=== PATIENT | female | born 1995 | race Caucasian/White ===

== ENCOUNTER → 2020-08-30 | Outpatient (CLI) | payer OTHER ==
--- NOTE | 2020-09-05 15:07 | REP ---
OB ULTRASOUND: 08/30/20 HISTORY: Growth scan. Gastric bypass. Real time sonographic evaluation of gravid uterus performed. There is a single living intrauterine gestation. The estimated gestational age is reportedly 31 weeks 1 day, EDC 10/31/20. Todays measurements indicates appropriate growth. BIOMETRY AND GROWTH: BPD: 80mm, 32 weeks 1 day; 65th percentile HC: 294mm, 32 weeks 3 days; 70th percentile AC: 274mm, 31 weeks 3 days; 56th percentile FL: 61mm, 31 weeks 5 days; 59th percentile HC/AC Ratio: 1.07 within normal range 0.96-1.15 Estimated weight: 1819g, 60th percentile position is cephalic. Placenta is anterior and grade with no previa or abruption. Three vessel umbilical cord is noted. HR is 133bpm. Amniotic fluid is within normal limits, ELVIA 12.5, normal range 8.8-23.8. S/D Ratio umbilical artery 3.41, normal range 1.89-3.97. RI 0.71, normal range 0.51-0.76. Visualized anatomy today includes lateral ventricles, posterior fossa, upper lip, stomach, kidneys, bladder, and spine. Cervix is closed and measures 3.7cm in length. MTDD
== END ==
LOC: M RAD 08:39 → EDBD 09-02 11:30
DX: Z34.83 Encounter for supervision of other normal pregnancy, third trimester (principal); Z3A.31 31 weeks gestation of pregnancy

== ENCOUNTER 2020-10-24 07:28 | Inpatient (IN) | payer OTHER ==
[~2020-10-24] VITALS: Ht 165.1 cm; Wt 107.7 kg
[~2020-10-24 07:28] MED LIST: VALT1TAB PO; VITA1MIS PO
[2020-10-24] MEDS ORDERED: LACTATED RINGER'S 1000 ML IV STA (07:50)
[2020-10-24] MEDS ORDERED: BICITRA 30ML SOLN UDC PO ONE (08:00)
[2020-10-24] MEDS ORDERED: ceFAZolin SOD 2 GM in IV 1 EA IV ONE (08:00)
[2020-10-24 08:40] LABS: HEMATOCRIT 37.9 % (36.0-47.0); HEMOGLOBIN 12.1 g/dl (12.0-15.5); MEAN CORPUSCULAR HEMOGLOBIN 27.9 pg (27.0-33.0); MEAN CORPUSCULAR HGB CONC 31.9 g/dl (32.0-36.5); MEAN CORPUSCULAR VOLUME 87.5 fl (80.0-96.0); PLATELET COUNT, AUTOMATED 215 10^3/uL (150-450); RED BLOOD COUNT 4.33 10^6/uL (4.00-5.40); WHITE BLOOD COUNT 8.1 10^3/uL (4.0-10.0)
[2020-10-24] MEDS: LR 1,000 ML IV SCH ×3 (09:44→23:50)
[2020-10-24] MEDS ORDERED: OXYTOCIN INJ 10 UNITS/ML VIAL (J2590) As Ordered ONE (09:57)
[2020-10-24] MEDS ORDERED: MORPHINE PRES-FREE INJ 10 MG/10 ML VIAL (J2274) As Ordered ONE (09:57)
[2020-10-24] MEDS ORDERED: ONDANSETRON 4MG/2ML VIAL As Ordered ONE (09:57)
[2020-10-24] MEDS ORDERED: ONDANSETRON 4MG/2ML VIAL IV PRN ×2 (10:06→11:45)
[2020-10-24] MEDS ORDERED: NALBUPHINE HCL 10 MG/ML AMP (J2300) IV PRN (10:06)
[2020-10-24] MEDS ORDERED: METOCLOPRAMIDE INJ 10MG/2ML VIAL (J2765 PER 1) IV PRN ×2 (10:06→11:45)
[2020-10-24] MEDS ORDERED: NALOXONE INJ 0.4MG/1ML VIAL (J2310 PER 1MG) IV PRN ×2 (10:06)
[2020-10-24] MEDS ORDERED: ePHEDrine SULFATE 25 MG/5 ML(5MG/ML) SYRINGE As Ordered ONE (10:16)
[2020-10-24] MEDS ORDERED: KETOROLAC 60MG 2ML VIAL As Ordered ONE (10:40)
[2020-10-24] MEDS ORDERED: diphenhydrAMINE 50MG/ML VIAL (J1200) As Ordered ONE (11:20)
[2020-10-24] MEDS ORDERED: OXYTOCIN DRIP 30 UNITS in IV 1 EA IV SCH (11:27)
[2020-10-24] MEDS ORDERED: MEASLES,MUMPS,RUBELLA VACCINE INJ (MMR-II) (90707) SC SCH (11:30)
[2020-10-24] MEDS ORDERED: ONDANSETRON 4 MG TAB PO PRN (11:30)
[2020-10-24] MEDS ORDERED: DOCUSATE SODIUM 100MG CAPSULE PO PRN (11:30)
[2020-10-24] MEDS ORDERED: RHOGAM 300 MCG (1500 IU) INJ (J2790) IM SCH (11:30)
[2020-10-24] MEDS ORDERED: fentaNYL 100 MCG/2 ML INJECTION (J3010) IV PRN (11:45)
[2020-10-24] MEDS ORDERED: PERCOCET 5MG/325MG TAB PO PRN (11:45)
[2020-10-24] MEDS ORDERED: LR 1,000 ML IV SCH (11:45)
[2020-10-24] MEDS ORDERED: OXYTOCIN 30 UNITS IN 0.9% NaCl 500ML IV BAG (J2590) As Ordered ONE (12:03)
--- NOTE | 2020-10-24 12:36 | RO ---
OPERATIVE NOTE DATE OF OPERATION: 10/24/2020 PREOPERATIVE DIAGNOSIS: History of section, no desire for child labor after section, and obesity. POSTOPERATIVE DIAGNOSIS: History of section, no desire for child labor after section, and obesity. PROCEDURE: Repeat low transverse section. SURGEON: Jovan Enrique DO DISABILITY BENEFITS SPECIALIST: Pat eParl CNM whose assistance with exposure and retraction was essential to the completion of the case. IV FLUIDS: 1200 mL OR. URINE OUTPUT: 50 mL. ESTIMATED BLOOD LOSS: 600 mL. COMPLICATIONS: None. ANTIBIOTICS: 2 grams Ancef before skin incision. OPERATIVE FINDINGS: A viable female found and delivered in cephalic presentation. Apgars 8 and 9. weight 3250 grams. Normal-appearing placenta; normal-appearing ovaries and fallopian tubes. DETAILED PROCEDURE DESCRIPTION: The risks, benefits, indications and alternatives of the procedure were reviewed with the patient and informed consent was obtained. The patient was taken to the operating room where spinal anesthesia was obtained and found to be adequate. She was then prepped and draped in the normal sterile fashion in the dorsal supine position. A Pfannenstiel skin incision was then made with a scalpel and carried through to the underlying layer of fascia with the Bovie. The fascia was incised in the midline and the incision was extended laterally with Martin scissors. There was extensive subcutaneous fat and fascial scarring. The superior aspect of the fascial incision was grasped with Tierra clamps, elevated, and the underlying rectus muscles were dissected off bluntly and with Martin scissors. Attention was then turned to the inferior aspect of the incision which, in a similar fashion, was grasped, tented up with Tierra clamps and the rectus muscles dissected off with blunt dissection and with Martin scissors. The rectus muscles were then in the midline. Next, the peritoneum was identified, tented up and entered bluntly. The peritoneal incision was extended horizontally and inferiorly with good visualization of the bladder. The extensive fascial scarring dissection added an extra 20 minutes to the case. A mobius self-containing retractor was then introduced into the abdomen. The vesicouterine peritoneum was then identified and a bladder flap was created using Metzenbaum scissors. Next, the lower uterine segment was incised in a transverse fashion with the scalpel. The amniotic sac was artificially ruptured producing clear fluid. The uterine incision was then extended manually in a superolateral fashion. The infant was found to be in cephalic presentation. The baby was then delivered without difficulty through the hysterotomy. The umbilical cord was then doubly clamped and cut. The infant was then handed off to the awaiting pediatricians. The placenta was then removed manually. The uterus was then cleared of all clots and debris. The uterine incision was then repaired with 0 Monocryl suture in a running, locked fashion. A second layer of 0 Monocryl was then used to imbricate the hysterotomy in a vertical fashion. Additional [id number] sutures of 3-0 Vicryl were used in the middle of the hysterotomy to achieve excellent hemostasis. Irrigation was then performed. Inspection of the hysterotomy again revealed excellent hemostasis. Irrigation was then performed to good effect. The Mobius self-containing retractor was then removed from the abdomen. The peritoneum was then closed with 3-0 Vicryl suture in a running fashion. The fascia was then closed with 0 PDS in a running fashion. The subcutaneous fat was then closed with 3-0 Vicryl suture. The skin was then closed with 4-0 Monocryl in a subcuticular fashion. The incision was then dressed and a pressure dressing was applied. At the completion of the case, a bimanual exam was performed which revealed good uterine tone and minimal vaginal bleeding. The patient tolerated the procedure well. Sponge, instrument, and needle counts were correct were correct times 3. The patient was taken to the recovery room in stable condition. SANDI
[2020-10-24 13:10] VITALS: BP 140/72
[2020-10-24 13:59] VITALS: BP 147/72
[2020-10-24 15:00] VITALS: BP 144/75
[2020-10-24] MEDS: KETOROLAC 30 MG/ML 1ML VIAL IV SCH ×2 (16:50→22:53)
[2020-10-24 18:00] VITALS: BP 143/75
[2020-10-24] MEDS: diphenhydrAMINE 50MG/ML VIAL (J1200) IV PRN (19:50)
[2020-10-24 22:00] VITALS: BP 129/74
[2020-10-25 02:00] VITALS: BP 125/56
[2020-10-25] MEDS: diphenhydrAMINE 50MG/ML VIAL (J1200) IV PRN (02:25)
[2020-10-25] MEDS: KETOROLAC 30 MG/ML 1ML VIAL IV SCH (05:18)
[2020-10-25 05:35] VITALS: BP 117/56
[2020-10-25 07:15] LABS: HEMATOCRIT 34.1 % (36.0-47.0); HEMOGLOBIN 10.6 g/dl (12.0-15.5); MEAN CORPUSCULAR HEMOGLOBIN 27.8 pg (27.0-33.0); MEAN CORPUSCULAR HGB CONC 31.1 g/dl (32.0-36.5); MEAN CORPUSCULAR VOLUME 89.5 fl (80.0-96.0); PLATELET COUNT, AUTOMATED 193 10^3/uL (150-450); RED BLOOD COUNT 3.81 10^6/uL (4.00-5.40); WHITE BLOOD COUNT 9.4 10^3/uL (4.0-10.0)
--- NOTE | 2020-10-25 07:57 | IPNPDOC ---
Progress Note Date of Service: Oct 25, 2020 Progress Note Raeann is a 25 yo G2 now P2 who underwent an uncomplicated, planned RLTCS yesterday morning at 39 weeks gestation. Overnight she did well and had no issues. She reports feeling well today. She has been ambulatory and is tolerating a regular diet. Pain is well controlled. Lochia is minimal. Vitals - VSS, afebrile, normotensive, nontachycardic General - AAOX3, sitting up in bed, NAD Abdomen - Fundus firm at U-2. No fundal tenderness. Dressing removed from abdomen. Wound clean/dry/intact. Steri strips in place. Minimal tenderness. Extremities - No edema UO - excellent Labs: Pre op H/H 12.1/37.9 ---> 10.6/34 this AM Raeann is doing well and is making an appropriate postoperative / recovery. Plan for discharge tomorrow if she meets all criteria. Marina Enrique DO VS, I&O, 24H, Fishbone Vital Signs/I&O Vital Signs Date Time Temp Pulse Resp B/P (MAP) Pulse Ox O2 Delivery O2 Flow Rate FiO2 10/25/20 05:35 98.5 81 17 117/56 (76) 96 Room Air I&O- Last 24 Hours up to 6 AM 10/25/20 06:00 Intake Total 3189 ml Output Total 2775 ml Balance 414 ml Laboratory Data 24H LABS Laboratory Tests 2 10/24/20 08:21: Nucleated Red Blood Cells % (auto) 0.0, Syphilis Serology NONREACTIVE 10/25/20 06:47: Nucleated Red Blood Cells % (auto) 0.0 CBC/BMP Laboratory Tests 10/24/20 08:21 10/25/20 06:47 MARINA ENRIQUE DO Oct 25, 2020 07:57
[2020-10-25] MEDS ORDERED: ACETAMINOPHEN 500 MG TAB PO PRN (08:00)
[2020-10-25] MEDS: PRENATAL VITAMINS CHEWABLE TABLET PO SCH (08:51)
[2020-10-25 09:51] VITALS: BP 138/63
[2020-10-25 14:00] VITALS: BP 140/68
[2020-10-25] MEDS: PERCOCET 5MG/325MG TAB PO PRN ×2 (15:34→19:41)
[2020-10-25 18:00] VITALS: BP 128/72
[2020-10-25 22:00] VITALS: BP 134/67
[2020-10-26] MEDS: PERCOCET 5MG/325MG TAB PO PRN ×2 (00:01→06:11)
[2020-10-26 02:00] VITALS: BP 131/60
[2020-10-26 06:00] VITALS: BP 137/75
[2020-10-26] MEDS ORDERED: PERCOCET PO (07:22)
[2020-10-26] MEDS ORDERED: DOCU100C16 PO (07:22)
--- NOTE | 2020-10-26 08:54 | DSES ---
DISCHARGE SUMMARY DATE OF ADMISSION: 10/24/2020 DATE OF DISCHARGE: 10/26/2020 BRIEF HISTORY: A 25-year-old 2 now para 2 admitted for repeat section at 39 weeks, had a female , 7 pounds, 3 ounces, 3250 grams, Apgars of 8 and 9 at 1 and 5 minutes respectively. 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 On her second day we discussed phlebitis, mastitis, endometritis, and cellulitis, diet, exercise, pain management, perineal, breasts and wound care. On discharge her blood pressure was 131/75, respirations are 18, pulse 69, temperature 69, temperature is 98.5. Her admitting hemoglobin was 12.1, hematocrit 37.9 and platelets 215,000. Discharge hemoglobin 10.6, hematocrit 34.1 and platelets are 193,000. PHYSICAL EXAMINATION: The rest of the examination is unremarkable, normocephalic, atraumatic. Neck: Full range of motion. Pupils equal and reactive to light. Distal pulses are symmetric. No evidence of DVT, PE or superficial phlebitis. Chest is clear bilaterally at bases. No wheezes or rhonchi. No CVA tenderness, abdomen is soft, four quadrant bowel sounds are noted. The incision is clean and dry. Uterus is two below. Lochia is moderate. The patient has a two week incision check and a six week check with [facility]. Medications were dispensed at [facility]. All questions were answered, a 20 minute discussion. edited: 10/27/2020 [id number] tkf cc: [facility] MTDD
[2020-10-26] MEDS: PRENATAL VITAMINS CHEWABLE TABLET PO SCH (09:29)
== END 2020-10-26 13:10 | disposition home or self-care (01) | DRG 773 ==
LOC: M LDI 07:28 → M OBS 12:48
PROVIDERS: ADMIT Obstetrics & Gynecology; ATTEND Obstetrics & Gynecology
PROC: 10D00Z1 Extraction of Products of Conception, Low, Open Approach (ICD-10-PCS; principal; 2020-10-24 09:30)
DX: O34.211 Maternal care for low transverse scar from previous cesarean delivery (principal); Z37.0 Single live birth; E66.9 Obesity, unspecified; O99.214 Obesity complicating childbirth; Z3A.39 39 weeks gestation of pregnancy